=== PATIENT | female | born 1990 | race Hispanic/Latino ===

== ENCOUNTER 2017-01-23 06:25 | Observation (INO) | payer OTHER ==
[2017-01-23] MEDS ORDERED: Sodium Chloride 0.9% 1,000 ML IV STA (07:29)
--- NOTE | 2017-01-23 07:38 | ED PDOC ---
HPI: Abdomen Time Seen by Provider: 01/23/17 07:13 Chief Complaint (Nursing): Abdominal Pain Chief Complaint (Provider): Abdominal Pain History Per: Patient History/Exam Limitations: no limitations Onset/Duration Of Symptoms: Days Current Symptoms Are (Timing): Still Present Severity: Mild Location Of Pain/Discomfort: Suprapubic (right sided) Quality Of Discomfort: "Pain" Associated Symptoms: Chills, Nausea, Diarrhea, Urinary Symptoms Exacerbating Factors: None Alleviating Factors: None Additional Complaint(s): Patient is a 27 year old female who was referred to ED by [employer] for evaluation of right sided pelvic pain. As per patient, she was initially diagnosed with a UTI 1 month ago, prescribed antibiotic which partially resolved the symptoms but patient than developed a yeast infection. Notes that the yeast infection has since resolved but she continues to have urinary frequency with mild dysuria. Patient also reports nausea, diarrhea and woke up this morning with sweats. Denies chest pain, SOB, recent travel, vaginal discharge, vomiting, fever or back pain. Patient reports she took Motrin last night with minimal relief. Of note, patient is sexually active with one partner, using protection every time. Patient is also 8 days late for her period but has had all negative home test. Past Medical History Reviewed: Historical Data, Nursing Documentation, Vital Signs Vital Signs: Last Vital Signs Temp 97.8 F 01/23/17 06:46 Pulse 72 01/23/17 06:46 Resp 17 01/23/17 06:46 BP 113/78 01/23/17 06:46 Pulse Ox 100 01/23/17 07:59 - Medical History Other PMH: uti; yeast infection - Surgical History Surgical History: No Surg Hx - Family History Family History: States: Unknown Family Hx - Living Arrangements Living Arrangements: With Family - Social History Current smoker - smoking cessation education provided: No Alcohol: None Drugs: Denies - Allergies Allergies/Adverse Reactions: Allergies Allergy/AdvReac Type Severity Reaction Status Date / Time No Known Allergies Allergy Verified 01/23/17 06:50 Review of Systems ROS Statement: Except As Marked, All Systems Reviewed And Found Negative Constitutional: Positive for: Sweats. Negative for: Fever, Chills Gastrointestinal: Positive for: Nausea, Diarrhea. Negative for: Vomiting, Abdominal Pain Genitourinary Female: Positive for: Dysuria, Frequency, Pelvic Pain. Negative for: Incontinence, Hematuria, Vaginal Discharge, Vaginal Bleeding, Rash Musculoskeletal: Negative for: Back Pain Skin: Negative for: Rash Neurological: Negative for: Weakness, Numbness Physical Exam - Reviewed Nursing Documentation Reviewed: Yes Vital Signs Reviewed: Yes - Physical Exam Appears: Positive for: Non-toxic, No Acute Distress Skin: Positive for: Normal Color, Warm Eye Exam: Positive for: Normal appearance ENT: Positive for: Normal ENT Inspection Neck: Positive for: Normal, Painless ROM Cardiovascular/Chest: Positive for: Regular Rate, Rhythm. Negative for: Murmur Respiratory: Positive for: Normal Breath Sounds. Negative for: Respiratory Distress Gastrointestinal/Abdominal: Positive for: Tenderness (right sided pelvic tenderness mild). Negative for: Mass, Distended, Guarding, Rebound Back: Positive for: Normal Inspection. Negative for: L CVA Tenderness, R CVA Tenderness Extremity: Positive for: Normal ROM Neurologic/Psych: Positive for: Alert, Oriented - Laboratory Results Result Diagrams: 01/23/17 08:21 01/23/17 08:21 Interpretation Of Abn Labs: no acute - ECG O2 Sat by Pulse Oximetry: 100 (RA) Pulse Ox Interpretation: Normal - Progress ED Course And Treament: 1150: Stable. AAOx3. Pain free. Does not want to get a ct scan to evaluate her appendix at this time. Has appt at [place] to see her doctor and does not want to miss that. Is aware of possible or decreased functioning from abd pain and appendicitis. Is taking her own risk and leaving. Will return here or go to another ER if she does not feel right or more pain. AAOx3. Has capacity to make decisions. Mini Mental Status Exam intact. Medical Decision Making Medical Decision Making: Time: 724 Initial impression: R/O ovarian pathology Initial plan: -- CMP -- Urine preg -- Urine dip -- CBC -- NSF, Toradol and Zofran -- ED obs -- U/S Scribe Attestation: Documented by Hannah Douglass acting as a scribe for Ty Cotto MD MD Scribe Attestation: All medical record entries made by the Scribe were at my direction and personally dictated by me. I have reviewed the chart and agree that the record accurately reflects my personal performance of the history, physical exam, medical decision making, and the department course for this patient. I have also personally directed, reviewed, and agree with the discharge instructions and disposition. ED OBSERVATION Discharge: Yes Date of observation admission: 01/23/17 Time of observation admission: 07:25 - Observation admission statement Patient is being placed in observation because:: Pending U/S and labs - Goals of Observation Goals of observation are:: Stable. AAOx3. Pain free. Disposition - Clinical Impression Clinical Impression: Abdominal pain - Patient ED Disposition Is Patient to be Admitted: No Counseled Patient/Family Regarding: Studies Performed, Diagnosis, Need For Followup - Disposition Disposition: Routine/Home Disposition Time: 11:53 Condition: STABLE - POA Present On Arrival: None
[2017-01-23 08:33] LABS: BASO % 0.5 % (0.0-2.0); EOS # 0.1 K/uL (0.0-0.7); EOS % 1.1 % (0.0-4.0); HEMATOCRIT 35.5 % (34.0-47.0); LYMPH # 1.8 K/uL (1.0-4.3); LYMPH % 27.8 % (20.0-40.0); MEAN CELL VOLUME 89.9 fl (81.0-99.0); MEAN CORPUSCULAR HEMOGLOBIN 30.5 pg (27.0-31.0); MEAN PLATELET VOLUME 9.3 fl (7.2-11.7); MONO # 0.6 K/uL (0.0-0.8); MONO % 10.2 % (0.0-10.0); NEUT # 3.8 K/uL (1.8-7.0); NEUT % 60.4 % (50.0-75.0); NRBC % 0.1 % (0.0-0.0); RED CELL DISTRIBUTION WIDTH 13.3 % (11.5-14.5); WHITE BLOOD COUNT 6.4 K/uL (4.8-10.8)
[2017-01-23 08:44] LABS: ALB/GLOB RATIO 1.4 (1.0-2.1); ALKALINE PHOSPHATASE 45 U/L (38-126); ALT/SGPT 25 U/L (9-52); AST/SGOT 19 U/L (14-36); BILIRUBIN,TOTAL 1.3 mg/dl (0.2-1.3); BLOOD UREA NITROGEN 11 mg/dl (7-17); CALCIUM 8.9 mg/dL (8.4-10.2); CARBON DIOXIDE 24 mmol/L (22-30); CHLORIDE 106 mmol/L (98-107); GFR AFRICAN-AMERICAN > 60; GLUCOSE,RANDOM 81 mg/dL (65-105); SODIUM 142 mmol/l (132-148); TOTAL PROTEIN 6.5 G/DL (6.3-8.2)
--- NOTE | 2017-01-23 10:59 | US ---
PROCEDURE: HISTORY: pelvic pain COMPARISON: None TECHNIQUE: FINDINGS: The uterus measures 6.9 x 5.0 x 4.1 centimeters. The endometrium measures 10 millimeters. The right ovary measures 3.5 x 2.4 x 1.5 centimeters. Left arm measures 3.3 x 3.0 x 1.9 centimeters. Is a small amount of free fluid in the right cul-de-sac. IMPRESSION: Unremarkable pelvic ultrasound.
[2017-01-23] MEDS ORDERED: Iohexol 240 (50 ml) PO ONE (11:33)
[2017-01-23 12:16] VITALS: BP 132/74; PULSE 79; RESP 19; TEMP 98; O2SAT 98
== END 2017-01-23 11:53 | disposition home or self-care (01) ==
LOC: H.ER 06:25 → H.EROBSV 07:28
PROVIDERS: ADMIT Emergency Medicine; ATTEND Emergency Medicine
DX: R10.2 Pelvic and perineal pain (principal)